=== PATIENT | female | born 1970 | race Asian ===

== ENCOUNTER 2018-07-12 15:19 | Emergency (ER) | payer OTHER ==
[~2018-07-12] VITALS: Ht 157.5 cm; Wt 57.2 kg
[2018-07-12] MEDS ORDERED: HYDROXYZINE HCL25 M1 PO (15:36)
[2018-07-12] MEDS ORDERED: PROZAC20 MG PO (15:36)
[2018-07-12] MEDS ORDERED: ZALEPLON 10 MG10 M1 PO (15:37)
[2018-07-12] MEDS ORDERED: XANAX 0.5 MG0.5 MG PO (15:37)
[2018-07-12 16:04] LABS: ABSOLUTE NEUTROPHILS 7.4 thou/uL (1.4-8.2); BASOPHILS 0.4 % (0.0-2.0); EOSINOPHILS 0.1 % (0.0-3.0); HEMATOCRIT 38.2 % (37.0-47.0); HEMOGLOBIN 13.2 gm/dL (12.0-15.0); LYMPHOCYTES 14.8 % (24.0-44.0); MCH 30.4 pg (26.0-34.0); MCHC 34.5 g/dL (28.0-37.0); MCV 88.3 fL (80.0-100.0); PLATELET COUNT 334 thou/uL (150-400); POLYS 76.7 % (36.0-66.0); RBC 4.33 mil/uL (4.20-5.00); RDW 13.2 % (10.5-14.5); WBC 9.6 thou/uL (4.0-11.0)
[2018-07-12 16:11] LABS: ANION GAP 11 mmol/L (7-16); BUN 10 mg/dL (7-18); CALCIUM 8.9 mg/dL (8.5-10.1); CHLORIDE 96 mmol/L (98-107); CO2 24 mmol/L (21-32); CREATININE 0.6 mg/dL (0.6-1.0); GLUCOSE 90 mg/dL (74-106); POTASSIUM 3.2 mmol/L (3.5-5.1); SODIUM 131 mmol/L (136-145)
[2018-07-12 16:16] LABS: ALBUMIN 3.5 g/dL (3.4-5.0); DIRECT BILIRUBIN 0.1 mg/dL (<0.1-0.3); SALICYLATE < 2.8 mg/dL (2.8-20.0); SGOT 21 U/L (15-37); SGPT 26 U/L (30-65); TOTAL BILIRUBIN 0.5 mg/dL (<0.1-1.0); TOTAL PROTEIN 7.4 g/dL (6.4-8.2)
[2018-07-12 17:02] LABS: AMP/METHAMP Negative (Negative); BARBITURATES Negative (Negative); BENZODIAZEPINES Negative (Negative); COCAINE Negative (Negative); METHADONE Negative (Negative); OPIATES Negative (Negative); PCP Negative (Negative)
[2018-07-12 17:14] VITALS: BP 138/68
--- NOTE | 2018-07-13 02:02 | EKG ---
[facility] [address] [place] [address] ELECTROCARDIOGRAM REPORT Name: TEGAN HUMPHREY Room #: DEP KITTY Szymanski#: [id number] Admission: 07/12/18 Attend Phys: Discharge: 07/12/18 Date of : 70 Report #: [id number] THIS REPORT FOR: //name// [facility] ED Test Date: 2018-07-12 Test Time: 15:29:50 Pat Name: TEGAN MILAGRO Department: Patient ID: [id number]- Room: Gender: F Employment Services Director: SHEEBA : 1970 Requested By: Dedra Cowart Order Number: [id number] MD: Jeff Kirkland Measurements Intervals Evans Rate: 92 P: 74 NM: 134 QRS: 28 QRSD: 83 T: 58 QT: 365 QTc: 452 Interpretive Statements Sinus rhythm left atrial enlargement Anteroseptal infarct, age indeterminate Nonspecific ST-T wave changes No previous ECG available for comparison Electronically Signed On 07-13-2018 2:01:55 [employer] by Jeff Kirkland [email or web address] <ELECTRONICALLY SIGNED> By: Jeff Kirkland MD 07/13/18 0201 1529 1529 Jeff Kirkland MD /RAMIRO
== END 2018-07-12 17:15 | disposition home or self-care (01) ==
LOC: ER 15:19
PROVIDERS: Emergency Medicine
DX: T42.6X1A Poisoning by other antiepileptic and sedative-hypnotic drugs, accidental (unintentional), initial encounter (principal); E87.6 Hypokalemia; G47.9 Sleep disorder, unspecified; Y92.89 Other specified places as the place of occurrence of the external cause